=== PATIENT | female | born 1990 | race Hispanic/Latino ===

== ENCOUNTER 2019-04-30 10:30 | Emergency (ER) | payer OTHER ==
[~2019-04-30] VITALS: Ht 152.4 cm; Wt 50.0 kg
[~2019-04-30 10:30] MED LIST: IBUPROFEN600 MG PO; NORCO1 TA2 PO; PRENATAL1 TA1 PO
[2019-04-30 11:18] LABS: HEMATOCRIT 35.9 % (37.0-47.0); HEMOGLOBIN 11.6 g/dl (12.0-16.0); IMMATURE GRANULOCYTES 0.4 % (0.0-5.0); MEAN CORPUSCULAR HGB CONC 32.3 g/L CALC (32.0-36.0); NEUT# 6.05 thou/uL (2.00-7.15); RED BLOOD COUNT 4.47 mill/uL (4.20-5.60); RED CELL DISTRI WIDTH 14.6 % (11.5-15.5)
[2019-04-30 11:20] LABS: MEAN CELL VOLUME 80.3 fL CALC (80.0-100.0)
[2019-04-30 11:24] LABS: BILIRUBIN, TOTAL 0.6 mg/dL (0.0-1.4); BUN 9 mg/dL (7-17); BUN/CREATININE RATIO 20 (12-20 (CALC)); CARBON DIOXIDE 23 mmol/l (22-30); CHLORIDE 101 mmol/l (95-108); CREATININE 0.5 mg/dL (0.5-1.0); GFR > 60 ML/MIN (>=60 (CALC)); GFR FOR AFR.AMER. > 60 ML/MIN (>=60 (CALC)); SGOT/AST 52 u/l (14-36); SODIUM 137 mmol/l (137-146); TOTAL PROTEIN 8.6 g/dL (6.3-8.2)
[2019-04-30 11:25] LABS: URINE BILIRUBIN - DIPSTICK NEGATIVE (NEGATIVE); URINE BLOOD DIPSTICK SMALL (NEGATIVE); URINE COLOR YELLOW; URINE GLUCOSE - DIPSTICK NEGATIVE (NEGATIVE); URINE KETONE TRACE mg/dL (NEGATIVE); URINE LEUK ESTERASE NEGATIVE (NEGATIVE); URINE NITRITE - DIPSTICK NEGATIVE (Negative); URINE PROTEIN - DIPSTICK TRACE mg/dL (NEG-TRACE); URINE SPECIFIC GRAVITY 1.015
[2019-04-30 11:29] LABS: ALKALINE PHOSPHATASE 70 u/l (38-126); ANION GAP 17 (6-22 (CALC)); POTASSIUM 3.7 mmol/l (3.5-5.1)
[2019-04-30 11:34] LABS: URINE SQUAMOUS EPITHELIAL CELL MANY EPI/hpf (0-FEW)
[2019-04-30 11:35] LABS: URINE BACTERIA FEW hpf; URINE WBC 0-2 WBC/hpf (0-5)
[2019-04-30] MEDS ORDERED: PHENERGAN25 MG RE (12:36)
[2019-04-30 12:48] VITALS: BP 106/51
== END 2019-04-30 12:54 | disposition home or self-care (01) ==
LOC: ED 10:30
PROVIDERS: Family Medicine
DX: O21.9 Vomiting of pregnancy, unspecified (principal); Z3A.01 Less than 8 weeks gestation of pregnancy

== ENCOUNTER 2021-06-16 10:11 | Emergency (ER) | payer OTHER ==
[~2021-06-16] VITALS: Ht 152.4 cm; Wt 52.0 kg
[~2021-06-16 10:11] MED LIST changes: +PHENERGAN25 MG RE
[2021-06-16] MEDS ORDERED: TAM75CAP PO (11:58)
[2021-06-16] MEDS ORDERED: FLONASE AL50 MCG/ACT (11:58)
[2021-06-16 12:04] LABS: URINE BILIRUBIN - DIPSTICK NEGATIVE (NEGATIVE); URINE BLOOD DIPSTICK SMALL (NEGATIVE); URINE COLOR YELLOW; URINE GLUCOSE - DIPSTICK NEGATIVE (NEGATIVE); URINE KETONE NEGATIVE (NEGATIVE); URINE LEUK ESTERASE NEGATIVE (NEGATIVE); URINE PROTEIN - DIPSTICK NEGATIVE (NEG-TRACE); URINE UROBILINOGEN - DIPSTICK 0.2 E.U./dL (0.2)
[2021-06-16 12:05] LABS: URINE NITRITE - DIPSTICK NEGATIVE (Negative)
[2021-06-16 12:23] VITALS: BP 104/64
== END 2021-06-16 12:23 | disposition home or self-care (01) ==
LOC: ED 10:11
PROVIDERS: Emergency Medicine
DX: J11.1 Influenza due to unidentified influenza virus with other respiratory manifestations (principal); Z20.822 Contact with and (suspected) exposure to COVID-19

== ENCOUNTER 2021-12-13 16:42 | Emergency (ER) | payer OTHER ==
[~2021-12-13] VITALS: Ht 152.4 cm; Wt 58.9 kg
[~2021-12-13 16:42] MED LIST changes: +FLONASE AL50 MCG/ACT; +TAM75CAP PO
[2021-12-13 16:49] VITALS: BP 130/82
[2021-12-13 17:00] VITALS: BP 107/71
[2021-12-13 17:30] VITALS: BP 117/78
[2021-12-13 18:00] VITALS: BP 108/70
[2021-12-13] MEDS ORDERED: AMOXICILLIN500 MG PO (18:05)
[2021-12-13 18:08] VITALS: BP 108/70
== END 2021-12-13 18:12 | disposition home or self-care (01) ==
LOC: ED 16:42
DX: J02.0 Streptococcal pharyngitis (principal); Z20.822 Contact with and (suspected) exposure to COVID-19